=== PATIENT | female | born 1955 | race Caucasian/White ===

== ENCOUNTER 2016-11-09 18:52 | Emergency (ER) | payer BC ==
[~2016-11-09] VITALS: Ht 165.1 cm; Wt 69.1 kg
[~2016-11-09 18:52] MED LIST: FLEXERIL5 MG PO; HYDROCODON-ACE1 EAC7 PO; MACROBID100 MG PO; Motrin PO; Percocet 5/325,Endoc PO
[2016-11-09 21:44] VITALS: BP 118/69
== END 2016-11-09 21:46 | disposition home or self-care (01) ==
LOC: EME 18:52
DX: T18.9XXA Foreign body of alimentary tract, part unspecified, initial encounter (principal)
CPT/HCPCS: 70360; 71020; 99281; 99284